=== PATIENT | female | born 1945 | race Caucasian/White ===

== ENCOUNTER 2018-04-04 11:14 | Outpatient (CLI) | payer MEDICARE, OTHER | END 2018-04-04 11:15 | disposition home or self-care (01) | LOC: BICMAMMO 11:14 | PROVIDERS: ATTEND Obstetrics & Gynecology | DX: Z12.31 Encounter for screening mammogram for malignant neoplasm of breast (principal); Z80.3 Family history of malignant neoplasm of breast | CPT/HCPCS: 77063; 77067 ==

== ENCOUNTER 2019-02-11 05:59 | Day surgery (SDC) | payer MEDICARE ==
[2019-02-08 12:18] VITALS: BMI 28.8
--- NOTE | 2019-02-08 12:35 | HP ---
HISTORY: A 73-year-old female presents with a 7- to 10-year history of right perianal papillae. On exam, it was appreciated to be a prolapsed right internal hemorrhoid. She has some external hemorrhoidal tags contributing to the problem. She complains of soilage and discomfort. She had a colonoscopy in 2015, Dr. Hughes and Dr. Tirado, that was normal. EGD has been normal. She has a history of reflux, well controlled on PPIs. Plan at this time is mini-bowel prep the day before, consisting of clear liquids after breakfast, magnesium citrate in the afternoon or evening, a Fleet Enema the night before or morning of her surgery, pending the time of operation and excision of right perianal prolapsed internal hemorrhoid and external hemorrhoidal complex. She understands risks and benefits of procedure and consents. ALLERGIES: NONE. SOCIAL HISTORY: Tobacco, none. Alcohol, none. MEDICATIONS: 1. Triamcinolone cream. 2. Clobetasol topical solution. 3. Hydrocortisone topical solution. 4. Citrucel. 5. Restasis. 6. Oxybutynin. 7. Omeprazole daily. 8. Systane drops. 9. Systane gels. 10. MiraLAX. 11. Ferrous sulfate. PAST MEDICAL HISTORY: Psoriasis. PAST SURGICAL HISTORY: Bladder suspension and hysterectomy in January of 2008. REVIEW OF SYSTEMS: Ten-point noncontributory. PHYSICAL EXAMINATION: VITAL SIGNS: Blood pressure 153/61, heart rate 76, temperature 98.2 degrees, 171.8 pounds, 29 BMI. HEAD, EARS, EYES, NOSE AND THROAT: Unremarkable. LUNGS: Clear to auscultation. CARDIAC: Regular rate and rhythm without murmur or gallop. ABDOMEN: Soft and nontender. No mass. EXTREMITIES: Unremarkable. : Perianal area, right, reveals prolapsed internal hemorrhoid with external hemorrhoidal tags. Left perianal area is normal. Rectal exam not performed. ASSESSMENT AND PLAN: Prolapsed right internal hemorrhoid. This hangs out approximately 4 cm, and the mucosa is exposed with soilage. We will assess. We will plan excision of this right-sided prolapsed hemorrhoid using the LigaSure for excision, chromic sutures for closure. She understands risks and benefits and consents. Job ID: [id number]
[2019-02-11] MEDS ORDERED: Fentanyl 100 MCG/2 ML VIAL ONE ×2 (06:54→06:55)
[2019-02-11] MEDS ORDERED: Bupivacaine HCl 0.5%/Epinephrine 1:200,000/PF 30 ml Vial ONE (07:00)
[2019-02-11] MEDS ORDERED: Lidocaine 2% PF 5 ML VIAL ONE (07:00)
[2019-02-11] MEDS ORDERED: Lidocaine 2% Jelly 5 ML TUBE ONE (07:00)
[2019-02-11] MEDS ORDERED: Ketorolac Tromethamine 30 MG/ML VIAL ONE (07:23)
[2019-02-11] MEDS ORDERED: Midazolam HCl 2 mg/2 ml Vial ONE (07:23)
[2019-02-11] MEDS ORDERED: cefOXitin 2 GM VIAL ONE (07:23)
[2019-02-11] MEDS ORDERED: Sodium Chloride 0.9% 100 ML ONE (07:23)
[2019-02-11 07:37] LABS: #Eosinphils 0.2 thou/uL (0.0-0.7); #Lymphocytes 1.4 thou/uL (1.20-3.40); #Monocytes 0.4 thou/uL (0.11-0.59); %Basophils 0.9 % (0.0-1.0); %Eosinophils 5.4 % (0.0-10.0); %Lymphocytes 34.3 % (21.0-51.0); %Monocytes 9.9 % (0.0-10.0); %Neutrophils 49.5 % (42.0-75.0); Hemoglobin 12.6 g/dL (12.0-16.0); Mean Corpuscular HGB CONC 33.1 g/dL (32.0-36.0); Mean Corpuscular Hemoglobin 30.6 pg (27.0-31.0); Mean Corpuscular Volume 92.4 fL (78.0-98.0); Mean Platelet Volume 8.9 fL (7.4-10.4); Platelet Count 198 thou/uL (130-400); Red Blood Cell (RBC) Count 4.12 mill/uL (4.20-5.40); White Blood Cell (WBC) Count 4.1 thou/uL (4.8-10.8)
[2019-02-11 07:52] LABS: Anion Gap 12 mmol/L (10-20); BUN (Urea Nitrogen) 21 mg/dL (9.8-20.1); Calc. Creatinine Clearance 64 mL/min (70-130); Calcium 9.7 mg/dL (7.8-10.44); Carbon Dioxide 28 mmol/L (23-31); Chloride 106 mmol/L (98-107); Estimated GFR-MDRD 58; Glucose 91 mg/dL (83-110); Potassium 4.1 mmol/L (3.5-5.1); Sodium 142 mmol/L (136-145)
[2019-02-11] MEDS ORDERED: Lidocaine 1% PF 5 ML VIAL ONE (12:28)
[2019-02-11] MEDS ORDERED: PROPOFOL 200 MG/20 ML VIAL ONE (12:28)
[2019-02-11] MEDS ORDERED: PHENYLEPHRINE-NS 100 MCG/ML 10 ML SYRINGE ONE (12:28)
[2019-02-11] MEDS ORDERED: Ondansetron PF 4 MG/2 ML Vial ONE (12:28)
[2019-02-11] MEDS ORDERED: Dexamethasone 20 MG/5 ML VIAL ONE (12:28)
[2019-02-11] MEDS ORDERED: ePHEDrine 50 MG/ML VIAL ONE (12:28)
--- NOTE | 2019-02-11 14:53 | OP ---
DATE OF PROCEDURE: 02/11/2019 PREOPERATIVE DIAGNOSIS: Prolapsed internal and external hemorrhoids, symptomatic, bothersome. POSTOPERATIVE DIAGNOSIS: Prolapsed internal and external hemorrhoids, symptomatic, bothersome. PROCEDURE PERFORMED: Excision of single hemorrhoidal complex, right, using the LigaSure. ANESTHESIA: General anesthesia, local of 0.5% Marcaine with epinephrine 30 mL mixed with 2% Xylocaine 10 mL, 20 mL mixture used. DESCRIPTION OF PROCEDURE: The patient was taken to the operating room, where under general anesthesia in the dorsal lithotomy position, perianal area and buttocks prepared with Betadine and draped in routine fashion. Rectal retractor inserted and a large hemorrhoidal complex noted on the right posterolateral. This was the area that was prolapsing. This was grasped with an Allis and apical suture of 3-0 chromic placed. An incision was made elliptically in the skin and LigaSure used to excise the hemorrhoidal complex, closing the defect with continuous locking suture of 3-0 chromic and local anesthetic was infiltrated in the skin and subcutaneous tissue. Good hemostasis was noted. No other significant hemorrhoidal complex was noted. The patient had a large redundant rectal mucosal or polyp that was removed with the specimen submitted to Pathology. Good hemostasis was noted. Local anesthetic was infiltrated in the skin and subcutaneous tissue about the operative site and dressings applied. Job ID: [id number]
--- NOTE | 2019-02-11 15:23 | EKG ---
Test Reason : PREOP Blood Pressure : / mmHG Vent. Rate : 060 BPM Atrial Rate : 060 BPM P-R Int : 172 ms QRS Dur : 086 ms QT Int : 434 ms P-R-T Axes : 065 025 042 degrees QTc Int : 434 ms Normal sinus rhythm Normal ECG When compared with ECG of 20-DEC-2000 11:32, Premature ventricular and fusion complexes are no longer Present Confirmed by JEREMY MANN, SDuy ([id number]) on 02/11/2019 3:23:16 PM Referred By: YOLA Confirmed By:DR. Eliona LUNA MD
== END 2019-02-11 10:41 | disposition home or self-care (01) ==
LOC: SDC 05:59
PROVIDERS: ATTEND Specialist
PROC: 06BY3ZC Excision of Hemorrhoidal Plexus, Percutaneous Approach (ICD-10-PCS; principal; 2019-02-11)
DX: K64.8 Other hemorrhoids (principal); K21.9 Gastro-esophageal reflux disease without esophagitis; Z88.0 Allergy status to penicillin; Z79.899 Other long term (current) drug therapy
CPT/HCPCS: 80048; 85025; 88304; 93005; 93010; J0131; J0670; J0694; J1885; J2001; J2250; J3010; J3490

== ENCOUNTER 2019-04-10 13:32 | Outpatient (CLI) | payer MEDICARE, OTHER ==
--- NOTE | 2019-04-10 14:14 | MMO ---
Bilateral MAMMO Bilat Screen [facility]. CLINICAL HISTORY: Patient is 73 years old and is seen for screening. The patient has the following family history of breast cancer: sister, at age 43 and sister, at age 73. The patient has no personal history of cancer. The patient has a history of bilateral Implants in 1974. VIEWS: The views performed were: bilateral craniocaudal with tomosynthesis; bilateral mediolateral oblique with tomosynthesis; and bilateral Implant displaced with tomosynthesis. FILMS COMPARED: The present examination has been compared to prior imaging studies performed at [facility] on 04/03/2017 and 04/04/2018, and at [facility] on 11/13/2014 and 11/18/2015. This study has been interpreted with the assistance of computer-aided detection. MAMMOGRAM FINDINGS: There are scattered fibroglandular densities. There are no suspicious masses, suspicious calcifications, or new areas of architectural distortion. IMPRESSION: THERE IS NO MAMMOGRAPHIC EVIDENCE OF MALIGNANCY. A ROUTINE FOLLOW-UP MAMMOGRAM IN 1 YEAR IS RECOMMENDED. THE RESULTS OF THIS EXAM WERE SENT TO THE PATIENT. ACR BI-RADS Category 1 - Negative MAMMOGRAPHY NOTE: 1. A negative mammogram report should not delay a biopsy if a dominant of clinically suspicious mass is present. 2. Approximately 10% to 15% of breast cancers are not detected by mammography. 3. Adenosis and dense breasts may obscure an underlying neoplasm. Reported by: DAYNA DIETRICH MD Electonically Signed: [id number]
== END 2019-04-10 13:33 | disposition home or self-care (01) ==
LOC: BICMAMMO 13:32
PROVIDERS: ATTEND Obstetrics & Gynecology
DX: Z12.31 Encounter for screening mammogram for malignant neoplasm of breast (principal); Z80.3 Family history of malignant neoplasm of breast; Z98.82 Breast implant status
CPT/HCPCS: 77063; 77067

== ENCOUNTER 2020-04-13 13:45 | Outpatient (CLI) | payer MEDICARE, OTHER ==
--- NOTE | 2020-04-13 15:16 | MMO ---
Bilateral MAMMO Bilat Screen [facility]. CLINICAL HISTORY: Patient is 74 years old and is seen for screening. The patient has the following family history of breast cancer: sister, at age 43 and sister, at age 73. The patient has no personal history of cancer. The patient has a history of bilateral Implants in 1974. VIEWS: The views performed were: bilateral craniocaudal; bilateral mediolateral oblique; and bilateral Implant displaced with tomosynthesis. FILMS COMPARED: The present examination has been compared to prior imaging studies performed at [facility] on 04/03/2017, 04/04/2018 and 04/10/2019, and at [facility] on 11/18/2015. This study has been interpreted with the assistance of computer-aided detection. MAMMOGRAM FINDINGS: There are scattered fibroglandular densities. Bilateral implants are stable. There are no suspicious masses, suspicious calcifications, or new areas of architectural distortion. IMPRESSION: THERE IS NO MAMMOGRAPHIC EVIDENCE OF MALIGNANCY. A ROUTINE FOLLOW-UP MAMMOGRAM IN 1 YEAR IS RECOMMENDED. THE RESULTS OF THIS EXAM WERE SENT TO THE PATIENT. ACR BI-RADS Category 2 - Benign finding MAMMOGRAPHY NOTE: 1. A negative mammogram report should not delay a biopsy if a dominant of clinically suspicious mass is present. 2. Approximately 10% to 15% of breast cancers are not detected by mammography. 3. Adenosis and dense breasts may obscure an underlying neoplasm. Reported by: MARILYN HERNANDEZ MD Electonically Signed: [id number]
== END 2020-04-13 13:46 | disposition home or self-care (01) ==
LOC: BICMAMMO 13:45
PROVIDERS: ATTEND Obstetrics & Gynecology
DX: Z12.31 Encounter for screening mammogram for malignant neoplasm of breast (principal); Z80.3 Family history of malignant neoplasm of breast; Z98.82 Breast implant status
CPT/HCPCS: 77063; 77067

== ENCOUNTER 2021-04-15 13:38 | Outpatient (CLI) | payer MEDICARE | END 2021-04-15 13:39 | disposition home or self-care (01) | LOC: BICMAMMO 13:38 | PROVIDERS: ATTEND Obstetrics & Gynecology | DX: Z12.31 Encounter for screening mammogram for malignant neoplasm of breast (principal); Z80.3 Family history of malignant neoplasm of breast; Z98.82 Breast implant status | CPT/HCPCS: 77063; 77067 ==

== ENCOUNTER 2022-05-19 11:03 | Outpatient (CLI) | payer MEDICARE | END 2022-05-19 11:04 | disposition home or self-care (01) | LOC: BICMAMMO 11:03 | PROVIDERS: ATTEND Obstetrics & Gynecology | DX: Z12.31 Encounter for screening mammogram for malignant neoplasm of breast (principal); Z98.82 Breast implant status; Z80.3 Family history of malignant neoplasm of breast | CPT/HCPCS: 77063; 77067 ==